=== PATIENT | female | born 1990 | race Caucasian/White ===

== ENCOUNTER 2024-03-04 10:34 | Inpatient (IN) | payer BC ==
[2024-03-04 19:59] VITALS: BMI 27.2
[2024-03-04] MEDS ORDERED: Diphenoxylate HCl/Atropine Tablet PO PRN ×2 (20:13)
[2024-03-04] MEDS ORDERED: Docusate 100 MG CAP PO PRN (20:13)
[2024-03-04] MEDS ORDERED: hydrALAZINE 20 MG/ML VIAL SLOW IVP PRN (20:13)
[2024-03-04] MEDS ORDERED: Lactated Ringer's 1,000 ML IV SCH (20:13)
[2024-03-04] MEDS ORDERED: Methylergonovine 0.2 MG/ML VIAL IM PRN (20:13)
[2024-03-04] MEDS ORDERED: HYDROcodone/Acetaminophen 5/325 mg Tablet PO PRN ×2 (20:13)
[2024-03-04] MEDS ORDERED: Carboprost 250 MCG/ML AMP IM PRN (20:13)
[2024-03-04] MEDS ORDERED: Acetaminophen 500 MG TAB PO PRN (20:13)
[2024-03-04] MEDS ORDERED: Misoprostol 200 MCG TAB PR PRN (20:13)
[2024-03-04] MEDS ORDERED: Oxytocin 30 units/NS 500 ML 500 ML IV SCH ×3 (20:13)
[2024-03-04] MEDS ORDERED: Penicillin G Potassium 5 MILL.UNITS in Sodium Chloride 0.9% 100 ML IVPB SCH (20:13)
[2024-03-04] MEDS ORDERED: Ibuprofen 800 MG TAB PO PRN (20:13)
[2024-03-04] MEDS ORDERED: Lidocaine 1% (PF) 30 ML VIAL SC PRN (20:13)
[2024-03-04] MEDS ORDERED: Promethazine HCl 25 MG/ML VIAL IM PRN (20:13)
[2024-03-04] MEDS: Misoprostol 100 MCG TAB VAG SCH (20:42)
[2024-03-04 20:50] LABS: Hematocrit 35.6 % (34.9-44.5); Mean Corpuscular HGB CONC 30.9 g/dL (32.0-36.0); Mean Corpuscular Hemoglobin 23.7 pg (27.0-33.0); Mean Corpuscular Volume 76.6 fL (81.6-98.3); Mean Platelet Volume 11.3 fL (7.4-10.4); Platelet Count 257 10x3/uL (150-450); RBC Distribution Width 15.9 % (11.5-14.5); Red Blood Cell (RBC) Count 4.65 10x6/uL (3.90-5.03); White Blood Cell (WBC) Count 9.7 10x3/uL (3.5-10.5)
[2024-03-04] MEDS: Zolpidem Tartrate 5 MG TAB PO PRN (21:15)
[2024-03-04 22:53] LABS: HBsAg Index 0.19 S/CO (0-0.99); HIV (1/2) Antibody/Antigen Non-Reactive (NonReactive); HIV 1/2 INDEX 0.06 S/CO (<1.00); Hep B Surf Ag - L&D Non-Reactive S/CO (NonReactive)
[2024-03-04 22:54] LABS: Syphilis Antibody Nonreactive (Nonreactive); Syphilis Antibody Index 0.03 S/CO (<1.00 Non-Reactive)
[2024-03-05] MEDS ORDERED: Penicillin G 2.5 MILL.units 2.5 MILL.UNITS in Premix 1 BAG IVPB SCH (01:00)
[2024-03-05] MEDS: Ondansetron PF 4 MG/2 ML Vial IVP PRN (01:53)
[2024-03-05] MEDS: fentaNYL 50 mcg/mL 1 mL Vial SLOW IVP PRN (02:11)
[2024-03-05] MEDS: Penicillin G Potassium 5 MILL.UNITS in Sodium Chloride 0.9% 100 ML IVPB SCH (02:13)
[2024-03-05] MEDS: fentaNYL/Ropivacaine Epidural 100 ML ONE (05:14)
[2024-03-05] MEDS ORDERED: Ondansetron PF 4 MG/2 ML Vial IVP PRN ×2 (05:25→11:39)
[2024-03-05] MEDS ORDERED: Acetaminophen 325 MG TAB PO PRN (05:25)
[2024-03-05] MEDS ORDERED: ePHEDrine Sulfate 50 MG/10 ML VIAL SLOW IVP PRN (05:25)
[2024-03-05] MEDS ORDERED: Naloxone HCl 0.4 mg/ml Vial IVP PRN ×2 (05:25)
[2024-03-05] MEDS ORDERED: Lactated Ringer's 500 ML IV PRN (05:25)
[2024-03-05] MEDS ORDERED: diphenhydrAMINE 50 MG/ML VIAL IVP PRN (05:25)
[2024-03-05] MEDS ORDERED: Moisturizing Cream (Eucerin) 113 GM JAR TOP PRN (05:25)
[2024-03-05] MEDS ORDERED: Promethazine HCl 25 MG/ML VIAL IM PRN (05:25)
[2024-03-05] MEDS ORDERED: Communication Order-Pharmacy FS SCH (05:30)
[2024-03-05] MEDS ORDERED: fentaNYL 2 mcg/Ropivacaine 0.2% Epidural 100 ML CADD EPIDURAL SCH (05:30)
[2024-03-05] MEDS: Penicillin G 2.5 MILL.units 2.5 MILL.UNITS in Premix 1 BAG IVPB SCH (06:07)
[2024-03-05] MEDS ORDERED: Bupivacaine/Epinephrine 0.25% 30 ML VIAL ONE (08:00)
[2024-03-05] MEDS ORDERED: Methylergonovine 0.2 MG/ML VIAL IM PRN (11:39)
[2024-03-05] MEDS ORDERED: Misoprostol 200 MCG TAB VAG PRN (11:39)
[2024-03-05] MEDS ORDERED: Milk Of Magnesia 30 ML UDCUP PO PRN (11:39)
[2024-03-05] MEDS ORDERED: hydrALAZINE 20 MG/ML VIAL SLOW IVP PRN (11:39)
[2024-03-05] MEDS ORDERED: diphenhydrAMINE 25 MG CAP PO PRN (11:39)
[2024-03-05] MEDS ORDERED: Lanolin Ointment 7 GM TUBE TOP PRN (11:39)
[2024-03-05] MEDS ORDERED: Bisacodyl 10 MG SUPP PR PRN (11:39)
[2024-03-05] MEDS ORDERED: HYDROcodone/Acetaminophen 5/325 mg Tablet PO PRN ×2 (11:39)
[2024-03-05] MEDS ORDERED: Preparation H Ointment 28 GM TUBE PR PRN (11:39)
[2024-03-05] MEDS ORDERED: Benzocaine-Menthol 82.5 ML CAN TOP PRN (11:39)
[2024-03-05] MEDS ORDERED: Witch Hazel 100 PAD JAR TOP PRN (11:43)
[2024-03-05] MEDS ORDERED: Oxytocin 30 units/NS 500 ML 500 ML IV SCH (11:45)
[2024-03-05 12:49] LABS: Hematocrit 32.1 % (34.9-44.5)
[2024-03-05] MEDS: Boostrix 0.5 ML (Tdap) VIAL (>/=7 yrs of age) IM ONE (15:03)
[2024-03-05] MEDS: Ferrous Sulfate 325 MG TAB PO SCH (18:01)
[2024-03-05] MEDS: Docusate 100 MG CAP PO SCH (21:21)
[2024-03-05] MEDS: Ibuprofen 800 MG TAB PO SCH (21:22)
[2024-03-06 11:26] VITALS: BP 109/56; TEMP 98.3
== END 2024-03-06 15:20 | disposition home or self-care (01) | DRG 807 ==
LOC: CSHLD 19:44 → CSHPP 03-05 14:33
PROVIDERS: ADMIT Obstetrics & Gynecology; ATTEND Obstetrics & Gynecology
PROC: 10E0XZZ Delivery of Products of Conception, External Approach (ICD-10-PCS; principal; 2024-03-05)
PROC: 10907ZC Drainage of Amniotic Fluid, Therapeutic from Products of Conception, Via Natural or Artificial Opening (ICD-10-PCS; 2024-03-05)
PROC: 0HQ9XZZ Repair Perineum Skin, External Approach (ICD-10-PCS; 2024-03-05)
DX: O70.0 First degree perineal laceration during delivery (principal); Z37.0 Single live birth; Z3A.39 39 weeks gestation of pregnancy
CPT/HCPCS: 36415; 51702; 85014; 85018; 85027; 86780; 86850; 86900; 86901; 87340; 87389; J2405; J2540; J3010